=== PATIENT | female | born 1955 | race Caucasian/White ===

== ENCOUNTER 2017-03-16 11:56 | Observation (INO) | payer OTHER ==
[~2017-03-16] VITALS: Ht 182.9 cm; Wt 62.5 kg
--- NOTE | ~2017-03-16 | A ---
[facility] Nutrition Therapy DATE: 03/17/17 Patient: LIZA BARTH Physician: ANDREE Address: [address] [place] [address] Room/Bed: [address] [place] [address], Zip: [place] [address] Admit Date: 03/16/17 Date of : 59 Height: 6 0 Weight: 137 62.5 NUTRITIONAL ASSESSMENT: REASON: Low BMI, 6 nutritional risk points re: 40# weight loss, consult re: weight loss 61 y/o female admitted for vertigo PMH: HTN, IBS, diverticulitis Anthropometrics: ht: 6'0" wt: 137# (62.5 kg) BMI 18 Labs: BUN 8 Meds: protonix, Lovenox, NaCl I/O & Bowel function: 560/3. BM 03/16 Skin Integrity: scar- abdomen. No edema. Estimated Nutrition Needs: Increased 2' low BMI and weight loss Diet: Healthy heart Assessment: Chart reviewed, events noted. Pt seen for 6 nutritional risk points re: 40# weight loss, low BMI, consult re: weight loss. RD restaurant management internship visited pt at bedside. Pt reports that her normal weight is 160#, which was 2 years ago. She has had a gradual weight loss over the past 2 years of 40#, mostly due to her IBS and diverticulitis. She reports a poor appetite, but she did eat 100% of her breakfast this morning of toast, eggs, and juice. RD restaurant management internship provided written and verbal diet education on a diet for diverticulitis. Pt was agreeable to Magic Cup BID to increase her protein intake and prevent additional weight loss. RD will continue to follow. Dx: Unintentional weight loss r/t poor appetite, PMH above AEB pt reported 40# weight loss over two years (25% BW). 2) Underweight r/t PMH, poor appetite AEB BMI of 18. Intervention: 1. Healthy heart diet 2. Magic Cup vanilla BID 3. Diverticulitis diet education Monitoring, Evaluation and Goals: 1. Intake; consume/tolerate >50% of meals and supplements w/no c/o n/v/d 2. Weight; prevent further weight loss [facility] Nutrition Therapy DATE: 03/17/17 Patient: LIZA BARTH Physician: ANDREE Address: [address] [place] [address] ROAD Room/Bed: [address] [place] [address], Zip: [place] [address] Admit Date: 03/16/17 Date of : [birth year] Height: 6 0 Weight: 137 62.5 3. GI; promote regular GI function Recommendations: 1. Healthy Heart diet + Magic Cup vanilla BID + 6 small meals 2. Follow diet recommendations when d/c'd home. 3. Encourage adequate PO intake. RD will f/u per protocol as pt is at moderate nutritional risk. Respectfully, Alice Chopra, Display Maker Gricel Hicks RD, LD [employer] [facility] [employer] cc: client file
--- NOTE | ~2017-03-16 | CT4 ---
[facility] A Service of [facility] RADIOLOGY TEXT RESULTS PATIENT: LIZA BARTH LOCATION: [place] [address] : [birth year] UNIT #: [id number] AGE: [address]: Kodi Rivas MD SEX: F ORDER DR: [id number] [facility] [address] [place], [place] [address] [id number] E MR#: [id number] Acc #: [id number] NAME: LIZA BARTH. : 1955 SEX: F STUDY DATE/TIME: 03/16/2017 13:16 UNIT: JUNE ROOM: STUDY DESCRIPTION: CT Abd and Pelv Wo Cont Attending Physician: Alejandro Sánchez M.D. Ordering Physician: Alejandro Harman75 Gonzalo Sánchez Primary Care Physician: Lu Hart M.D. MEDICAL IMAGING REPORT This report is preliminary unless electronic signature is present EXAM CT abdomen and pelvis without contrast DATE: 03/16/2017 HISTORY 61-year-old female with abdominal pain, difficulty urinating and with bowel movements today. Left lower quadrant pain, mid to center abdomen. COMPARISON CT abdomen and pelvis with contrast 02/26/2014. PROCEDURE Noncontrast axial images through the abdomen and pelvis. Enteric contrast was not administered. Sagittal coronal reformed images were obtained. The CT exam was performed with one or more of the following radiation dose reduction techniques: automatic exposure control, adjustment of mA and/or kV according to patient size, and iterative reconstruction. Abdomen findings: Lung bases are free of consolidation. Bilateral breast implants are incidentally noted. Surgical changes of gastric bypass noted. The midline ventral supraumbilical hernia contains only omental fat which does not appear appreciably inflamed or incarcerated. Intrahepatic pneumobilia unchanged likely related previous sphincterotomy. Gallbladder surgically absent. Spleen and pancreas and adrenal glands are normal. Bilateral renal cysts redemonstrated. The appendix is not visualized but no pericecal inflammation is appreciated. Pelvis findings: Small left inguinal hernia containing vessels and fat, unchanged from 2014. Urinary bladder and rectum and uterus appear unremarkable. . [facility] A Service of [facility] RADIOLOGY TEXT RESULTS PATIENT: LIZA BARTH LOCATION: [facility] [id number] : [birth year] UNIT #: [id number] AGE: [address]: Kodi Rivas MD SEX: F ORDER DR: IMPRESSION 1. No acute findings in the upper pelvis. 2. Left inguinal hernia and midline ventral supraumbilical hernia containing fat and vessels, unchanged from 2014. No convincing evidence of incarceration or active inflammation. 3. Surgical changes of presumed gastric bypass. 4. Bilateral renal cysts. Dictated by... Susan Heredia M.D. THIS IS AN ELECTRONICALLY VERIFIED REPORT Susan Heredia M.D. at 03/18/2017 9:34 PM SOCO/justin TD: 03/16/2017 15:04 JOB #: [id number] MEDICAL IMAGING REPORT Page 1 of 1 COPY
--- NOTE | ~2017-03-16 | HP ---
Unit #: [id number] #: [id number] Patient: LIZA BARTH [id number] [address] [place], [place] [address] [id number] MR#: [id number] NAME: LIZA BARTH ROOM: Age: 61 Sex: F Admission Date: 03/16/2017 : 1955 Attending Physician: Alejandro Sánchez M.D. Primary Care Physician: Lu Hart M.D. HISTORY AND PHYSICAL CHIEF COMPLAINT Abdominal pain. HISTORY OF PRESENT ILLNESS The patient is a 61-year-old female with history of hypertension, irritable bowel syndrome, multiple abdominal surgeries. Brought to the emergency room complaining of abdominal pain. The patient stated she was having abdominal pain using the bathroom, and it started 3 hours ago. The patient said she had another attack of the diverticulitis. The patient was found to have left inguinal hernia with a knot bulging. The patient was also complaining of vertigo. The patient was undergoing the Darryl maneuver by the ER physician, and then the patient started complaining of severe vertigo, and it was not relieved with meclizine or Valium. The patient is being admitted for the above reasons. The patient complains of severe vertigo when (1) to attempt hernia reduction by the ER physician, and the patient also states she had "hernia a few days ago that lasted only a few minutes." Positive for nausea. Denies any chest pain. Denies any shortness of breath. Denies any cough. PAST MEDICAL HISTORY History of hypertension, irritable bowel syndrome. PAST SURGICAL HISTORY Cholecystectomy, umbilical hernia repair, multiple surgeries for diverticulitis and abscess. ALLERGIES None. HOME MEDICATIONS The patient is on Protonix, Bentyl and Norvasc. FAMILY HISTORY Positive for coronary artery disease. SOCIAL HISTORY The patient lives with her boyfriend. She smokes 1 pack per day and drinks a couple beers a day. Denies any illicit drug abuse. REVIEW OF SYMPTOMS Negative for headache. Positive for vertigo. Positive for nausea. Denies any vomiting. Negative for chest pain. Negative for palpitations. Denies any weakness. Other systems were reviewed and are negative. Unit #: [id number] #: [id number] Patient: LIZA BARTH PHYSICAL EXAMINATION GENERAL: The patient is lying on the bed, not in acute distress. VITALS: Temperature 98.1, pulse 76, respiratory rate 14, blood pressure 188/86, satting 99% on room air. HEENT: Head atraumatic, normocephalic. Pupils are equally round reactive to light and accommodation. Extraocular movements are intact. NECK: Supple. LUNGS: Decreased air entry at the bases. HEART: Regular rate and rhythm. ABDOMEN: Soft. Positive bowel sounds. EXTREMITIES: No cyanosis. No clubbing. Patient has a minimal bulge on the left inguinal hernia and is not tender. No erythema. DIAGNOSTIC STUDIES LAB DATA: WBC 6.3, hemoglobin 14.3, hematocrit 42.1, platelets 259. Sodium 135, potassium 3.7, chloride 106, bicarb 23, glucose 135, BUN 10, creatinine 0.6, AST 34, ALT 30, alkaline phosphatase 61, amylase 15. UA is negative. IMAGING: CT of the abdomen shows an umbilical hernia and left inguinal hernia. No evidence of incarceration or other inflammatory changes. ASSESSMENT 1. Vertigo. 2. Left inguinal hernia. 3. Hypertension. PLAN Plan to admit the patient to observation with telemetry. Continue with meclizine. Will have neurology evaluation for probable benign positional vertigo. LSA evaluation for the left inguinal hernia. Continue with pain medications. Further recommendations will follow. Dictated by Elio Horton TD: 03/16/2017 16:14 JOB #: [id number] HISTORY AND PHYSICAL Page 1 of 1 X MADDIE HUMPHRIES MD HISTORY AND PHYSICAL
[~2017-03-16 11:56] MED LIST: ALPRAZOLAM0.25 MG PO; AMLODIPINE BESYL5 MG PO; ASPIRIN81 M1 PO; ASPIRINEC PO; BENICAR; BENTYL20 M1 PO; DARVOCET-N 1001 TAB PO; DICYCLOMINE HCL10 MG; DICYCLOMINE HCL20 MG PO; FLAGYL; HCTZ PO; LISINOPRIL20 MG PO; LOMOTIL WHITE2.5 MG PO; MEGACE ORA40 MG/ML S PO; MOBIC PO; PROBIOTIC1 EAC1; PROTONIX PO; REGLAN10 MG PO; VICODIN
[2017-03-16 13:12] LABS: BASOPHIL# 0.1 X10e3 (0-0.3); BASOPHIL% 1.1 % (0-2.5); DIFF IND NO; EOSINOPHIL# 0.1 X10e3 (0-0.7); EOSINOPHIL% 1.1 % (0.0-7.0); HEMATOCRIT 42.1 % (35.0-45.0); HEMOGLOBIN 14.3 gm/dL (12.0-16.0); LYMPHOCYTE# 1.5 X10e3 (1.0-3.5); LYMPHOCYTE% 24.1 % (17.0-45.0); MEAN CORPUSCULAR HEMOGLOBIN 32.3 PG (28-34); MEAN CORPUSCULAR HGB CONC 34.1 g/dL (30-36); MEAN PLATELET VOLUME 8.4 FL (6.5-11.5); MONOCYTE# 0.7 X10e3 (0-1.0); NEUTROPHIL% 62.7 % (40-75); PLATELET COUNT 259 X10e3 (140-420); RED BLOOD COUNT 4.43 X10e (3.90-5.30); RED CELL DISTRIBUTION WIDTH 13.8 % (11.0-15.5); WHITE BLOOD COUNT 6.3 X10e3 (4.0-10.5)
[2017-03-16 13:33] LABS: ALBUMIN SERUM 3.9 g/dL (3.5-5.0); BILIRUBIN, DIRECT 0.1 mg/dL (0.0-0.2); BILIRUBIN,INDIRECT 0.3 mg/dL (0.0-0.9); BILIRUBIN,TOTAL 0.4 mg/dL (0.2-2.0); BUN/CREATININE RATIO 16.66; CALCIUM SERUM 8.8 mg/dL (8.4-10.2); CREATININE SERUM 0.6 mg/dL (0.6-1.4); GLOM FILT RATE Estimated 99.8 mL/min (>60); POTASSIUM 3.7 mmol/L (3.5-5.1); PROTEIN TOTAL SERUM 6.7 g/dL (6.0-8.3)
[2017-03-16 15:07] LABS: URINE SOURCE CLEAN CATCH
[2017-03-16 15:12] LABS: URINE APPEARANCE CLEAR; URINE BILIRUBIN NEG (NEG); URINE BLOOD NEG (NEG); URINE COLOR YELLOW; URINE GLUCOSE NEG (NEG); URINE KETONE NEG (NEG); URINE LEUKOCYTE ESTERASE NEG (NEG); URINE NITRATE NEG (NEG); URINE PROTEIN NEG (NEG); URINE SPECIFIC GRAVITY 1.008 (1.003-1.035); URINE UROBILINOGEN 0.2 MG/DL (NEG)
[2017-03-16 16:04] LABS: CULTURE INDICATED? NO
[2017-03-17 05:57] LABS: BASOPHIL# 0.1 X10e3 (0-0.3); BASOPHIL% 2.1 % (0-2.5); DIFF IND NO; EOSINOPHIL# 0.1 X10e3 (0-0.7); EOSINOPHIL% 2.2 % (0.0-7.0); HEMATOCRIT 41.1 % (35.0-45.0); HEMOGLOBIN 13.3 gm/dL (12.0-16.0); LYMPHOCYTE# 2.2 X10e3 (1.0-3.5); LYMPHOCYTE% 36.2 % (17.0-45.0); MEAN CELL VOLUME 95.9 FL (83-96); MEAN CORPUSCULAR HEMOGLOBIN 31.2 PG (28-34); MEAN CORPUSCULAR HGB CONC 32.5 g/dL (30-36); MEAN PLATELET VOLUME 8.5 FL (6.5-11.5); MONOCYTE# 0.8 X10e3 (0-1.0); MONOCYTE% 12.6 % (3.0-12.0); NEUTROPHIL# 2.9 X10e3 (1.5-7.1); NEUTROPHIL% 46.9 % (40-75); PLATELET COUNT 237 X10e3 (140-420); RED BLOOD COUNT 4.28 X10e (3.90-5.30); RED CELL DISTRIBUTION WIDTH 13.5 % (11.0-15.5); WHITE BLOOD COUNT 6.2 X10e3 (4.0-10.5)
[2017-03-17 06:27] LABS: BUN/CREATININE RATIO 13.33; CALCIUM SERUM 8.4 mg/dL (8.4-10.2); CREATININE SERUM 0.6 mg/dL (0.6-1.4); GLOM FILT RATE Estimated 99.8 mL/min (>60); POTASSIUM 3.7 mmol/L (3.5-5.1)
[2017-03-17] MEDS ORDERED: ANTIVERT PO (17:11)
== END 2017-03-17 17:43 | disposition home or self-care (01) ==
LOC: CED 11:56 → C5C 13:55 → CED 21:07 → C5C 03-17 08:16
PROVIDERS: Emergency Medicine; Internal Medicine
DX: R42 Dizziness and giddiness (principal); K40.90 Unilateral inguinal hernia, without obstruction or gangrene, not specified as recurrent; I10 Essential (primary) hypertension; N28.1 Cyst of kidney, acquired; R63.6 Underweight; Z68.1 Body mass index [BMI] 19.9 or less, adult; F17.200 Nicotine dependence, unspecified, uncomplicated; Z82.49 Family history of ischemic heart disease and other diseases of the circulatory system
CPT/HCPCS: 36415; 74176; 80048; 80076; 81003; 82150; 83690; 85025; 96361; 96374; 96375; 97112; 97165; 99285; G0378; G8987-GO; G8988-GO; J1170; J1650; J3360